=== PATIENT | male | born 1965 | race American Indian/Alaskan Native ===

== ENCOUNTER 2017-03-21 16:59 | Emergency (ER) | payer BC, OTHER ==
[2017-03-21 17:06] VITALS: RESP 18; TEMP 98.9; BMI 28.7
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
[2017-03-21 20:18] VITALS: BP 140/78; PULSE 85; O2SAT 99
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
== END 2017-03-21 20:18 | disposition home or self-care (01) ==
LOC: MERGE 16:59 → ED 16:59
DX: S39.012A Strain of muscle, fascia and tendon of lower back, initial encounter (principal); V49.9XXA Car occupant (driver) (passenger) injured in unspecified traffic accident, initial encounter; M79.604 Pain in right leg